=== PATIENT | female | born 1985 | race Caucasian/White ===

== ENCOUNTER 2016-06-18 15:49 | Inpatient (IN) | payer OTHER ==
[~2016-06-18] VITALS: Ht 165.1 cm; Wt 99.8 kg
[2016-06-18] VITALS (8 sets, daily range): BP systolic 108–123; BP diastolic 46–91; PULSE 71–87; RESP 18–20; TEMP 98.7
[2016-06-18] MEDS ORDERED: LACTATED RINGER'S 1000 ML INJ 1,000 ML IV PRN ×2 (16:09→17:21)
[2016-06-18] MEDS ORDERED: LACTATED RINGER'S 1000 ML INJ 1,000 ML IV SCH (16:09)
[2016-06-18] MEDS ORDERED: MINERAL OIL 10 ML VIAL TOPICAL PRN ×2 (16:15→17:30)
[2016-06-18] MEDS ORDERED: LIDOCAINE HCL 1% 50 ML VIAL INFIL PRN ×2 (16:15→17:30)
[2016-06-18] MEDS ORDERED: ONDANSETRON HCL 4 MG/2 ML VIAL IV PRN (16:15)
[2016-06-18] MEDS ORDERED: LIDOCAINE HCL 1% 50 ML VIAL I-DERMAL PRN ×2 (16:15→17:30)
[2016-06-18] MEDS ORDERED: CITRIC ACID-SODIUM CITRATE LIQ 30 ML UDC PO SCH ×2 (16:15→17:30)
[2016-06-18] MEDS ORDERED: SODIUM CHLORID 0.9% 500 ML INJ 500 ML IV PRN ×2 (16:15→17:30)
[2016-06-18] MEDS ORDERED: OXYTOCIN 30 UNITS-500ML PREMIX 500 ML IV ONE ×2 (16:15→17:30)
--- NOTE | 2016-06-18 16:22 | HHI.HP ---
HPI Chief Complaint complaint of labor pain, post-due Date Seen: Jun 18, 2016 Time Seen: 15:30 Travel History International Travel<30 Days: No Contact w/Intl Traveler<30Days: No Known Affected Area: No History of Present Illness HPI 31 yo G1 with EDC 06/16/16 by LMP c/w 11 wk sono, presented to office today for routine OB visit, post-due, with complaints of pelvic pressure, irregular contractions. Denies LOF or VB. Good FM. Testing shows 8/8 BPP of vertex female infant, SVE 370/-1 mid-position, tight bag of water with palpable contraction. Pain 2-3/10. Uncomplicated care with [facility], 14 visits. Para: 0 : 1 Last Menstrual Period: September 10, 2015 Miscarriage: 0 : 0 History Past Medical History Narrative Medical LSIL PAP in Obstetric History Obstetric History G1 = current, female Past Surgical History Narrative Surgical denies Family History Family History: Negative Social History Alcohol Use: No Tobacco Use: No Substance Abuse: No Allergies-Medications (Allergen,Severity, Reaction): Coded Allergies: No Known Allergies (Unverified , 06/18/16) Review of Systems General / Constitutional: Weight Gain, No: Fever, Chills, Other Eyes: No: Diploplia, Blurred Vision, Visual changes, Pain, Photophobia HENT: No: Headaches, Vertigo, Lightheadedness Cardiovascular: No: Irregular Rhythm, Chest Pain or Discomfort, Palpitations, Tachycardia, Syncope, Varicosities, Edema, Cyanosis Respiratory: No: Cough, Short of Breath, Other Gastrointestinal: No: Nausea, Vomiting, Diarrhea Genitourinary: Pelvic Pain (pressure/contractions), No: Decreased Urinary Output, Oliguria Musculoskeletal: No: Limited ROM, Weakness, Cramping, Edema, Pain Skin: No Rash, No Itching, No Dryness, No Lumps, No Change in Pigmentation, No Change in Nails, No Alopecia, No Lesions Neurologic: No: Weakness, Dizziness, Syncope, Focal Abnormalities, Coordination Problem, Headache, Slurred Speech, Seizures Psychiatric: No: Depression, Suicidal Ideations, Homicidal Ideation Endocrine: No: Heat Intolerance, Cold Intolerance, Polydipsia, Polyuria, Other Physical Exam Narrative GENERAL: Well-nourished, well-developed patient. Overweight, 54# weight gain in . SKIN: Warm and dry. HEAD: Normocephalic and atraumatic. EYES: No scleral icterus. No injection or drainage. ENT: No nasal drainage noted. Mucous membranes pink. Airway patent. NECK: Supple, trachea midline. No JVD. CARDIOVASCULAR: Regular rate and rhythm without murmurs, gallops, or rubs. RESPIRATORY: Breath sounds equal bilaterally. No accessory muscle use. BREASTS: deferred. ABDOMEN/GI: Abdomen soft, non-tender, bowel sounds present, no rebound, no guarding Gravid to [41 weeks size Fundal Height: [41] GENITOURINARY: External Genitalia: intact and normal in appearance BUS glands: [wnl Cervix: [mid] Dilatation: [3] Effacement: [60 Station: [-1] Presentation: [vtx] Membranes: [intact FHT's: 8/8 BPP in office EXTREMITIES: No cyanosis or edema. BACK: Nontender without obvious deformity. No CVA tenderness. NEUROLOGICAL: Awake and alert. Motor and sensory grossly within normal limits. Five out of 5 muscle strength in all muscle groups. Normal speech. Data Data Vital Signs Reviewed: Yes Orders Admit To Inpatient (06/18/16 ) Code Status (06/18/16 16:09) Vital Signs (Adult) .Per protocol (06/18/16 16:09) Activity Oob Ad Alyssa (06/18/16 16:09) ^ Heart (06/18/16 16:09) ^ Amnioinfusion (06/18/16 16:09) Urinary Catheter Management .ONCE (06/18/16 16:09) Lactated Ringer's 1000 Ml Inj (Lr 1000 M (06/18/16 16:09) Lactated Ringer's 1000 Ml Inj (Lr 1000 M (06/18/16 16:09) Sodium Chlorid 0.9% 500 Ml Inj (Ns 500 M (06/18/16 16:15) Sodium Chlor 0.9% 1000 Ml Inj (Ns 1000 M (06/18/16 16:29) Lidocaine 1% Inj (50 Ml) (Xylocaine 1% I (06/18/16 16:15) Citric Acid-Sodium Citrate Liq (Bicitra (06/18/16 16:15) Ondansetron Inj (Zofran Inj) (06/18/16 16:15) Fentanyl Inj (Fentanyl Inj) (06/18/16 16:15) Fentanyl Inj (Fentanyl Inj) (06/18/16 16:15) Complete Blood Count With Diff (06/18/16 16:09) Hold Clot (06/18/16 16:09) Abo/Rh Blood Type (06/18/16 16:09) Urinalysis - C+S If Indicated (06/18/16 16:09) Resp Oxygen Non Rebreathe Mask (06/18/16 ) ^ Epidural / Intrathecal Infus (06/18/16 16:09) Oxytocin 30 Units-500ml Premix (Pitocin (06/18/16 16:15) Lidocaine 1% Inj (50 Ml) (Xylocaine 1% I (06/18/16 16:15) Light Mineral Oil (Muri-Lube Oil) (06/18/16 16:15) Inpatient Certification (06/18/16 ) Specimen To Be Collected PRN (06/18/16 16:09) Diet Regular Basic (06/18/16 Dinner) ^ Non Stress Test (06/18/16 16:09) Response To Medication .Post New Med Administration, Reaction (06/18/16 16:09) ^ Discontinue Medication (06/18/16 16:09) Oxytocin Drip (2-2-30) (06/18/16 16:15) Assessment/Plan Problem List: (1) Labor and delivery indication for care or intervention (2) , post-term Assessment and Plan 31 yo G1 with EDC 06/16/16, 40w2d, admit for labor augmentation at post-due 1) labor augmentation: very favorable on exam in office, plan AROM, pitocin as needed 2) GBS neg 3) h/o LSIL in , for PP f/u 4) status: vertex, female, EFW 8# Discharge Planning routine, 2 days postdelivery Renea Clay MD Jun 18, 2016 16:22
[2016-06-18] MEDS ORDERED: SODIUM CHLOR 0.9% 1000 ML INJ 1,000 ML IV PRN ×2 (16:29→17:41)
[2016-06-18] MEDS ORDERED: OXYTOCIN 30 UNITS-500ML PREMIX 500 ML IV SCH (16:45)
[2016-06-18 17:14] LABS: BACTERIA, URINE RARE /hpf; BLOOD, URINE NEG (NEG); COMMENT (UR) CULT NOT INDICATED; CULTURE IF INDICATED CULT NOT INDICATED; GLUCOSE,URINE NEG (NEG); KETONE, URINE NEG (NEG); MUCUS URINE FEW /lpf (OCC); NITRITE,URINE NEG (NEG); PH, URINE 5.5 (5.0-8.5); SQUAMOUS EPITHELIAL CELL URINE 1 /hpf (0-5); URINE COLOR LIGHT-YELLOW (YELLW/STRAW)
[2016-06-18] MEDS ORDERED: SODIUM CHLORIDE 0.9% FLUSH 5 ML FLUSH IV FLUSH PRN (17:30)
[2016-06-18] MEDS ORDERED: DINOPROSTONE 10 MG VAG INSERT VAGINAL ONE (17:30)
[2016-06-18 18:13] LABS: AUTOMATED NEUTROPHIL # 9.8 TH/MM3 (1.8-7.7); BASOPHIL % 0.3 % (0.0-2.0); EOSINOPHIL # 0.3 TH/MM3 (0-0.4); HEMATOCRIT 36.1 % (35.0-46.0); HEMO FLAGS DIFF FINAL; LYMPH % 18.8 % (9.0-44.0); LYMPHOCYTE # 2.6 TH/MM3 (1.0-4.8); MEAN CELL VOLUME 87.6 FL (80.0-100.0); MEAN CORPUSCULAR HEMOGLOBIN 29.3 PG (27.0-34.0); MEAN CORPUSCULAR HGB CONC 33.4 % (32.0-36.0); MONO % 8.1 % (0.0-8.0); NEUT % 70.8 % (16.0-70.0); PLATELET COUNT 220 TH/MM3 (150-450); RED BLOOD COUNT 4.12 MIL/MM3 (4.00-5.30); RED CELL DISTRIBUTION WIDTH 13.7 % (11.6-17.2); WHITE BLOOD COUNT 13.9 TH/MM3 (4.0-11.0)
[2016-06-18] MEDS: LACTATED RINGER'S 1000 ML INJ 1,000 ML IV SCH (18:17)
[2016-06-18] MEDS ORDERED: SODIUM CHLORIDE 0.9% FLUSH 5 ML FLUSH IV FLUSH SCH (21:00)
[2016-06-18] MEDS ORDERED: fentaNYL 2MCG-BUPIV 0.125% INJ 100 ML ONE (23:58)
[2016-06-19] VITALS (83 sets, daily range): BP systolic 60–132; BP diastolic 38–86; PULSE 64–131; RESP 18–20; TEMP 98.3–98.8
[2016-06-19] MEDS ORDERED: ePHEDrine/NS 25 MG/5 ML SYR ONE (00:33)
[2016-06-19] MEDS ORDERED: NO SYSTEM NARCOTICS XX PRN (00:45)
[2016-06-19] MEDS ORDERED: fentaNYL 2MCG-BUPIV 0.125% 100 ML EPIDURAL SCH (00:45)
[2016-06-19] MEDS ORDERED: DO NOT ADMINISTER ANTICOAGULANTS XX PRN (00:45)
[2016-06-19] MEDS ORDERED: ePHEDrine/NS 25 MG/5 ML SYR IV PRN (01:15)
[2016-06-19] MEDS ORDERED: OXYTOCIN 30 UNITS-500ML PREMIX 500 ML ONE (04:10)
[2016-06-19] MEDS: LACTATED RINGER'S 1000 ML INJ 1,000 ML IV SCH ×3 (04:19→11:25)
--- NOTE | 2016-06-19 09:01 | PD.LABORPN ---
Subjective Subjective comfortable with epidural Objective Vital Signs Vital Signs Date Time Temp Pulse Resp B/P Pulse Ox O2 Delivery O2 Flow Rate FiO2 06/19/16 08:39 20 06/19/16 08:33 70 106/62 06/19/16 08:31 72 60/42 06/19/16 08:01 69 112/49 06/19/16 07:45 20 06/19/16 07:31 67 105/44 06/19/16 07:15 98.7 20 06/19/16 07:01 76 103/54 06/19/16 06:41 18 06/19/16 06:31 18 06/19/16 06:31 76 105/60 06/19/16 06:26 68 106/47 06/19/16 06:15 98.7 06/19/16 06:15 20 06/19/16 06:01 64 97/42 06/19/16 05:45 18 06/19/16 05:31 65 06/19/16 05:31 99/41 06/19/16 05:15 18 06/19/16 05:01 100/44 06/19/16 05:01 64 06/19/16 04:30 18 06/19/16 04:27 86 103/84 06/19/16 04:23 73 74/47 06/19/16 04:16 95/44 06/19/16 04:16 76 06/19/16 04:00 83 06/19/16 04:00 101/58 06/19/16 04:00 20 06/19/16 03:45 81 06/19/16 03:45 99/63 06/19/16 03:30 18 06/19/16 03:30 80 107/51 06/19/16 03:15 73 100/57 06/19/16 03:00 80 99/59 06/19/16 02:46 18 06/19/16 02:45 73 100/62 06/19/16 02:30 72 100/58 06/19/16 02:18 84 96/68 06/19/16 02:17 18 06/19/16 02:16 131 67/46 06/19/16 02:01 70 92/42 06/19/16 02:00 18 06/19/16 01:46 72 94/38 06/19/16 01:31 68 06/19/16 01:31 99/42 06/19/16 01:16 98.5 105/86 06/19/16 01:14 18 06/19/16 01:00 79 116/55 Objective Pelvic Exam: Cervix:5/90/-2, arom clear, Presentation: Membranes: AROM clear Uterine Contractions: [-] FHT's: Category:I Baseline:140 Reactive:n Variability:mod Decels: [-] Assessment/Plan Problem List: (1) Labor and delivery indication for care or intervention (2) , post-term Assessment and Plan 31 G1 at 40w3d admitted for iol yesterday 1) IOL - cervidil for less than 12 hours. Pitocin started early this morning. AROM this check. 2) GBS negative 3) Fetus Cat I tracing 4) LSIL pap- f/u pp Sydney Bowen MD Jun 19, 2016 09:01
[2016-06-19] MEDS ORDERED: MORPHINE SULFATE 8 MG/ML INJ ONE (14:51)
--- NOTE | 2016-06-19 15:19 | PD.OB.DELI ---
Delivery Date: Jun 19, 2016 Anesthesia: Epidural Episiotomy: Midline Vaginal Delivery: Normal Presentation: Occiput anterior Nuchal Cord: None Delayed cord clamping (45 sec): Yes : Female One Minute : 7 Five Minute : 9 Weight: 3215g Care: Suctioned, Spontaneous crying, Responded to stimulation Placenta: Spontaneous delivery Laceration: Episiotomy, 2 deg Repair: Chromic running Additional Information ebl 400ml Sydney Bowen MD Jun 19, 2016 15:19
[2016-06-19] MEDS ORDERED: ZOLPIDEM TARTRATE 5 MG TAB PO PRN (15:30)
[2016-06-19] MEDS ORDERED: SODIUM CHLORIDE 0.9% FLUSH 5 ML FLUSH IV PRN (15:30)
[2016-06-19] MEDS ORDERED: ALUMINUM/MAGNESIUM/SIMETH 30 ML CUP PO PRN (15:30)
[2016-06-19] MEDS ORDERED: ONDANSETRON ODT 4 MG TAB PO PRN (15:30)
[2016-06-19] MEDS ORDERED: ACETAMINOPHEN 325 MG TAB PO PRN (15:30)
[2016-06-19] MEDS: IBUPROFEN 600 MG TAB PO PRN ×2 (15:39→21:03)
[2016-06-19] MEDS ORDERED: DIPHTH/TETANUS/ACEL PERTUSSIS (BOOSTER) 0.5 ML VIAL/PFS IM ONE (16:00)
[2016-06-19] MEDS ORDERED: MEASLES, MUMPS, RUBELLA VACCINE 0.5 ML VIAL SQ ONE (16:00)
[2016-06-19] MEDS: oxyCODONE/ACETAMINOPHEN 5 MG/325 MG TAB PO PRN (18:57)
[2016-06-19] MEDS: BENZOCAINE 20% TOPICAL SPRAY 60 ML CAN TOPICAL PRN (21:02)
[2016-06-19] MEDS: WITCH HAZEL 50%/GLYCERIN 12.5% 40 PAD JAR TOPICAL PRN (21:02)
[2016-06-20] MEDS: oxyCODONE/ACETAMINOPHEN 5 MG/325 MG TAB PO PRN ×6 (01:56→23:39)
[2016-06-20] MEDS: DOCUSATE SODIUM 50 MG/SENNA 8.6 MG TAB PO PRN ×2 (02:08→21:27)
[2016-06-20] MEDS: IBUPROFEN 600 MG TAB PO PRN ×4 (03:01→21:27)
[2016-06-20 08:20] VITALS: BP 114/67; PULSE 112; PULSE 116; RESP 18; TEMP 98.2
[2016-06-20] MEDS: SODIUM CHLORIDE 0.9% FLUSH 5 ML FLUSH IV SCH (09:00)
[2016-06-20] MEDS: LACTATED RINGER'S 1000 ML INJ 1,000 ML IV SCH ×2 (09:21→17:21)
--- NOTE | 2016-06-20 11:30 | HHI.OB ---
Subjective Post Day: 1 Remarks PPD#1; Stable,pain controlled, transitioning well Objective Vitals/I&O Vital Signs Date Time Temp Pulse Resp B/P Pulse Ox O2 Delivery O2 Flow Rate FiO2 06/20/16 08:20 98.2 18 06/20/16 08:20 116 114/67 06/20/16 08:20 112 06/19/16 23:00 18 06/19/16 23:00 98.5 91 113/75 06/19/16 17:45 98.3 97 18 106/67 06/19/16 16:15 98.4 06/19/16 16:15 18 06/19/16 15:31 90 126/67 06/19/16 15:15 20 06/19/16 15:01 108 120/72 06/19/16 12:15 20 06/19/16 12:01 70 126/65 06/19/16 11:43 98.8 20 06/19/16 11:31 71 116/50 Objective Remarks GENERAL: Well-nourished, well-developed patient. CARDIOVASCULAR: Regular rate and rhythm without murmurs, gallops, or rubs. RESPIRATORY: Breath sounds equal bilaterally. No accessory muscle use. ABDOMEN/GI: Abdomen soft, non-tender. Fundus: Firm, non-tender at umbilicus. GENITOURINARY: Light to moderate bleeding. EXTREMITIES: No cyanosis or edema, non-tender, without signs of DVT. Medications and IVs Current Medications Medications (Trade) Dose Ordered Sig/Vikram Route Start Time Stop Time Status Last Admin Lactated Ringer's 1,000 ml @ 125 mls/hr Q8H IV 06/18/16 17:21 06/19/16 11:25 Lactated Ringer's 1,000 ml @ 3,000 mls/hr Q20M PRN IV 06/18/16 17:21 06/19/16 00:44 Sodium Chloride 500 ml @ 1,000 mls/hr ONCE PRN IV 06/18/16 17:30 06/25/16 17:29 (NS 1000 ml Inj) 1,000 ml @ 100 mls/hr Q10H PRN IV 06/18/16 17:41 (Muri-Lube Oil) 10 ml UNSCH PRN TOPICAL 06/18/16 17:30 (NS Flush) 2 ml BID IV 06/19/16 21:00 (NS Flush) 2 ml UNSCH PRN IV 06/19/16 15:30 (Tylenol) 650 mg Q4H PRN PO 06/19/16 15:30 (Motrin) 600 mg Q6H PRN PO 06/19/16 15:30 06/20/16 09:01 (Percocet 5-325 Mg) 1 tab Q4H PRN PO 06/19/16 15:30 06/20/16 10:18 (Americaine 20% Top Spr) 1 spray Q4H PRN TOPICAL 06/19/16 15:30 06/19/16 21:02 (Tucks Pads) 1 applic QID PRN TOPICAL 06/19/16 15:30 06/19/16 21:02 (Kristin-Colace) 2 tab Q12H PRN PO 06/19/16 15:30 06/20/16 02:08 (Ambien) 5 mg HS PRN PO 06/19/16 15:30 (Mag-Al Plus Susp Liq) 15 ml Q8H PRN PO 06/19/16 15:30 (Zofran Odt) 4 mg Q6H PRN PO 06/19/16 15:30 Assessment/Plan Problem List: (1) Labor and delivery indication for care or intervention (2) , post-term Assessment and Plan PPD#1, Stable,anticipate discharge tomorrow Discharge Planning does not meet criteria Attending Attestation Seen by Naren Unger MD Jun 20, 2016 11:30
[2016-06-20 20:00] VITALS: BP 106/62; PULSE 80; RESP 18; TEMP 98.1
[2016-06-21] MEDS: IBUPROFEN 600 MG TAB PO PRN ×2 (03:36→09:56)
[2016-06-21] MEDS: oxyCODONE/ACETAMINOPHEN 5 MG/325 MG TAB PO PRN ×3 (03:36→12:47)
[2016-06-21 07:50] VITALS: BP 100/61; PULSE 84; RESP 18; TEMP 98.3
[2016-06-21] MEDS: SODIUM CHLORIDE 0.9% FLUSH 5 ML FLUSH IV SCH (09:00)
--- NOTE | 2016-06-21 09:15 | HHI.OB ---
Subjective Post Day: 2 Remarks doing well nursing pain controlled minimal lochia Objective Vitals/I&O Vital Signs Date Time Temp Pulse Resp B/P Pulse Ox O2 Delivery O2 Flow Rate FiO2 06/21/16 07:50 98.3 84 18 06/21/16 07:50 100/61 06/20/16 20:00 98.1 80 18 106/62 Objective Remarks GENERAL: Well-nourished, well-developed patient. CARDIOVASCULAR: Regular rate and rhythm without murmurs, gallops, or rubs. RESPIRATORY: Breath sounds equal bilaterally. No accessory muscle use. ABDOMEN/GI: Abdomen soft, non-tender. Fundus: Firm, non-tender at umbilicus. GENITOURINARY: Light to moderate bleeding. EXTREMITIES: No cyanosis or edema, non-tender, without signs of DVT. Medications and IVs Current Medications Medications (Trade) Dose Ordered Sig/Vikram Route Start Time Stop Time Status Last Admin Lactated Ringer's 1,000 ml @ 125 mls/hr Q8H IV 06/18/16 17:21 06/19/16 11:25 Lactated Ringer's 1,000 ml @ 3,000 mls/hr Q20M PRN IV 06/18/16 17:21 06/19/16 00:44 Sodium Chloride 500 ml @ 1,000 mls/hr ONCE PRN IV 06/18/16 17:30 06/25/16 17:29 (NS 1000 ml Inj) 1,000 ml @ 100 mls/hr Q10H PRN IV 06/18/16 17:41 (Muri-Lube Oil) 10 ml UNSCH PRN TOPICAL 06/18/16 17:30 (NS Flush) 2 ml BID IV 06/19/16 21:00 (NS Flush) 2 ml UNSCH PRN IV 06/19/16 15:30 (Tylenol) 650 mg Q4H PRN PO 06/19/16 15:30 (Motrin) 600 mg Q6H PRN PO 06/19/16 15:30 06/21/16 03:36 (Percocet 5-325 Mg) 1 tab Q4H PRN PO 06/19/16 15:30 06/21/16 07:59 (Americaine 20% Top Spr) 1 spray Q4H PRN TOPICAL 06/19/16 15:30 06/19/16 21:02 (Tucks Pads) 1 applic QID PRN TOPICAL 06/19/16 15:30 06/19/16 21:02 (Kristin-Colace) 2 tab Q12H PRN PO 06/19/16 15:30 06/20/16 21:27 (Ambien) 5 mg HS PRN PO 06/19/16 15:30 (Mag-Al Plus Susp Liq) 15 ml Q8H PRN PO 06/19/16 15:30 (Zofran Odt) 4 mg Q6H PRN PO 06/19/16 15:30 Assessment/Plan Problem List: (1) Labor and delivery indication for care or intervention (2) , post-term Assessment and Plan PPD#2 Stable,ready for discharge prefers 2 week follow up with Sherlyn Vasques MD Jun 21, 2016 09:15
[2016-06-21] MEDS ORDERED: IBUP-232 PO (09:16)
--- NOTE | 2016-06-21 09:16 | HHI.DCPOC ---
Discharge Care Plan Report Symptoms to Your Doctor -Temperate above 100.5 degrees -Redness, of incision or excessive or foul smelling drainage -Unusual pain or calf pain -Increased vaginal bleeding -Painful or difficulty urinating -Feelings of extreme sadness or anxiety after 2 weeks Goals to Promote Your Health * To prevent worsening of your condition and complications * To maintain your health at the optimal level Directions to Meet Your Goals Take your medications as prescribed Follow your dietary instruction Follow activity as directed Ensure plenty of rest for recovery Drink fluids for hydration Keep your appointments as scheduled Take your immunizations and boosters as scheduled If your symptoms worsen call your PCP, if no PCP go to Urgent Care Center or Emergency Room Smoking is Dangerous to Your Health. Avoid second hand smoke Call the 24-hour crisis hotline for domestic abuse at Sherlyn Beltre MD Jun 21, 2016 09:16
[2016-06-21] MEDS: LACTATED RINGER'S 1000 ML INJ 1,000 ML IV SCH (09:21)
[2016-06-21] MEDS: WITCH HAZEL 50%/GLYCERIN 12.5% 40 PAD JAR TOPICAL PRN (12:54)
[2016-06-21] MEDS: BENZOCAINE 20% TOPICAL SPRAY 60 ML CAN TOPICAL PRN (12:54)
== END 2016-06-21 14:16 | disposition home or self-care (01) | DRG 775 ==
LOC: H2EB 15:49 → H1EA 06-19 17:24
PROVIDERS: ADMIT Obstetrics & Gynecology; ATTEND Obstetrics & Gynecology
PROC: 10E0XZZ Delivery of Products of Conception, External Approach (ICD-10-PCS; principal; 2016-06-19)
PROC: 0W8NXZZ Division of Female Perineum, External Approach (ICD-10-PCS; 2016-06-19)
PROC: 3E0P7GC Introduction of Other Therapeutic Substance into Female Reproductive, Via Natural or Artificial Opening (ICD-10-PCS; 2016-06-19)
DX: O48.0 Post-term pregnancy (principal); Z37.0 Single live birth; Z3A.40 40 weeks gestation of pregnancy
CPT/HCPCS: 59025; 76937; 81001; 85025; 86900; 86901; 90715; J2270; J2590; J3010; J7120